=== PATIENT | female | born 1935 | race Caucasian/White ===

== ENCOUNTER 2016-12-18 11:15 | Emergency (ER) | payer OTHER ==
[~2016-12-18] VITALS: Ht 162.6 cm; Wt 80.1 kg
[~2016-12-18 11:15] MED LIST: ALPR-138 PO; AMLO5TAB22 PO; ASPI81TA82 PO; CARV3.125 PO; LEVO.05 PO; LISI-363 PO; ROSU40 PO
[2016-12-18 11:21] VITALS: BP 156/80; PULSE 75; RESP 16; TEMP 98.5; O2SAT 99
[2016-12-18] MEDS ORDERED: CARV3.12 PO (11:44)
[2016-12-18] MEDS ORDERED: AMLO5TAB2 PO (11:44)
[2016-12-18] MEDS ORDERED: ROSU40 PO (11:44)
[2016-12-18] MEDS ORDERED: VITA100064 PO (11:44)
[2016-12-18] MEDS ORDERED: LEVO88TA2 PO (11:44)
[2016-12-18] MEDS ORDERED: ASPI81TA11 PO (11:44)
[2016-12-18] MEDS ORDERED: LISI-515 PO (11:44)
[2016-12-18] MEDS ORDERED: SODIUM CHLORIDE 0.9% FLUSH 10 ML FLUSH IVF PRN (12:00)
[2016-12-18] MEDS ORDERED: ONDANSETRON HCL 4 MG/2 ML VIAL IVP ONE (12:00)
[2016-12-18] MEDS ORDERED: SODIUM CHLOR 0.9% 1000 ML INJ 1,000 ML IV ONE (12:00)
[2016-12-18 12:04] VITALS: O2SAT 97
--- NOTE | 2016-12-18 12:13 | PD ---
HPI Chief Complaint: General Weakness Time Seen by Provider: 11:47 Travel History International Travel<30 days: No Contact w/Intl Traveler<30days: No Traveled to known affect area: No History of Present Illness HPI Patient is an 81-year-old female who presents to emergency room from home for evaluation of general weakness. Patient reports that she was at home sitting on her bed talking to her doctor's office as she has had a cough and sore throat for the past week. Patient reports that after she got the phone, she felt "flushed". Patient reports that she felt weakness all over her body from her head to her toes, reports that "it felt as if everything was draining out of my body." Patient reports no syncopal or presyncopal episode. Reports that the symptoms lasted for a few minutes and resolved. Reports at this time, she just feels "weak" reports that everything started 30 minutes prior to coming to the emergency room. Patient at this time denies any headache or dizziness, denies chest pain or shortness of breath. She reports that she has had a nonproductive cough for the past week as well as a sore throat. Reports that her grandchild is sick with a sinusitis. Patient denies any abdominal pain, denies nausea or vomiting. Patient denies dysuria, urinary urgency or frequency. Patient with no other complaints at this time. PFSH Past Medical History Arthritis: Yes Asthma: No Autoimmune Disease: No Heart Rhythm Problems: No Cancer: Yes (SKIN CANCER -NOSE CHEST) Cardiovascular Problems: Yes High Cholesterol: Yes Chest Pain: No Congestive Heart Failure: No COPD: No Cerebrovascular Accident: Yes Diabetes: No Diminished Hearing: No Endocrine: Yes Gastrointestinal Disorders: Yes GERD: Yes Genitourinary: No Headaches: No Hiatal Hernia: Yes Hypertension: Yes Immune Disorder: No Musculoskeletal: Yes Neurologic: Yes Psychiatric: No Reproductive: No Respiratory: No Immunizations Current: No Migraines: No Myocardial Infarction: Yes Seizures: No Sleep Apnea: No Thyroid Disease: Yes Tetanus Vaccination: > 5 Years Influenza Vaccination: No Menopausal: Yes Tubal Ligation: Yes Past Surgical History Abdominal Surgery: Yes (APPENDECTOMY CHILDHOOD) Appendectomy: Yes Cardiac Surgery: No Coronary Stent: Yes Ear Surgery: No Endocrine Surgery: No Eye Surgery: No Genitourinary Surgery: Yes (COLONOSCOPY 2005) Gynecologic Surgery: Yes (TUBAL LIGATION) Joint Replacement: Yes (RIGHT KNEE) Neurologic Surgery: No Oral Surgery: Yes (TONSILLECTOMY-CHILDHOOD) Thoracic Surgery: No Tonsillectomy: Yes Other Surgery: Yes (VEIN STRIPPING RT LEG-1980 SKIN CANCER) Social History Alcohol Use: No Tobacco Use: No Substance Use: No Allergies-Medications (Allergen,Severity, Reaction): Coded Allergies: Benadryl (Verified Allergy, Severe, ANTIHISTAMINES, 12/18/16) Cipro (Verified Allergy, Severe, UNKNOWN, 12/18/16) Corticosteroids (Verified Allergy, Severe, UNKNOWN, 12/18/16) Penicillin (Verified Allergy, Severe, UNKNOWN, 12/18/16) Sulfa (Verified Allergy, Severe, UNKNOWN, 12/18/16) Acetaminophen (Unverified Adverse Reaction, Severe, VOMITING, 12/18/16) Reported Meds & Prescriptions Reported Meds & Active Scripts Active Azithromycin 500 Mg Tab 500 Mg PO DAILY Reported Crestor (Rosuvastatin Calcium) 40 Mg Tab 40 Mg PO DAILY Levothyroxine (Levothyroxine Sodium) 88 Mcg Tab 88 Mcg PO DAILY Amlodipine (Amlodipine Besylate) 5 Mg Tab 5 Mg PO DAILY Aspirin EC (Aspirin) 81 Mg Tabdr 81 Mg PO DAILY Carvedilol 3.125 Mg Tab 3.125 Mg PO BID Lisinopril 20 Mg Tab 20 Mg PO DAILY Vitamin D (Cholecalciferol) 1,000 Unit Tab 2,000 Units PO DAILY Review of Systems General / Constitutional: No: Fever, Chills Eyes: No: Visual changes HENT: Positive: Sore Throat, No: Headaches Cardiovascular: No: Chest Pain or Discomfort Respiratory: Positive: Cough, No: Shortness of Breath Gastrointestinal: No: Abdominal Pain Genitourinary: No: Dysuria Musculoskeletal: Positive: Weakness, No: Pain Skin: No Rash Neurologic: No: Weakness Psychiatric: No: Depression Endocrine: No: Polydipsia Hematologic/Lymphatic: No: Easy Bruising Physical Exam Narrative GENERAL: nad, nontoxic, vss SKIN: Focused skin assessment warm/dry. HEAD: Atraumatic. Normocephalic. EYES: Pupils equal and round. No scleral icterus. No injection or drainage. ENT: No nasal bleeding or discharge. Mucous membranes pink and moist. NECK: Trachea midline. No JVD. CARDIOVASCULAR: Regular rate and rhythm. No murmur appreciated. RESPIRATORY: No accessory muscle use. Clear to auscultation. Breath sounds equal bilaterally. GASTROINTESTINAL: Abdomen soft, non-tender, nondistended. Hepatic and splenic margins not palpable. MUSCULOSKELETAL: No obvious deformities. No clubbing. No cyanosis. No edema. NEUROLOGICAL: Awake and alert. No obvious cranial nerve deficits. Motor grossly within normal limits. Normal speech. CN 2-12 grossly intact with no neurological deficits PSYCHIATRIC: Appropriate mood and affect; insight and judgment normal. Data Data Last Documented VS Vital Signs Date Time Temp Pulse Resp B/P Pulse Ox O2 Delivery O2 Flow Rate FiO2 12/18/16 13:02 16 100 Room Air 12/18/16 13:01 78 169/77 12/18/16 11:21 98.5 Orders Electrocardiogram (12/18/16 11:59) Prothrombin Time / Inr (Pt) (12/18/16 11:59) Act Partial Throm Time (Ptt) (12/18/16 11:59) Complete Blood Count With Diff (12/18/16 11:59) Comprehensive Metabolic Panel (12/18/16 11:59) Creatine Kinase (Cpk) (12/18/16 11:59) Troponin I (12/18/16 11:59) Urinalysis - C+S If Indicated (12/18/16 11:59) Ct Brain W/O Iv Contrast(Rout) (12/18/16 11:59) Chest, Single Ap (12/18/16 11:59) Ecg Monitoring (12/18/16 11:59) Iv Access Insert/Monitor (12/18/16 11:59) Oximetry (12/18/16 11:59) Ondansetron Inj (Zofran Inj) (12/18/16 12:00) Sodium Chloride 0.9% Flush (Ns Flush) (12/18/16 12:00) Sodium Chlor 0.9% 1000 Ml Inj (Ns 1000 M (12/18/16 12:00) Group A Rapid Strep Screen (12/18/16 12:07) Influenzae A/B Antigen (12/18/16 12:27) Strep Culture (Group A) (12/18/16 12:15) Azithromycin (Zithromax) (12/18/16 14:15) Labs Laboratory Tests Test 12/18/16 12/18/16 12:15 12:30 White Blood Count 7.5 TH/MM3 Red Blood Count 4.47 MIL/MM3 Hemoglobin 12.7 GM/DL Hematocrit 37.3 % Mean Corpuscular Volume 83.3 FL Mean Corpuscular Hemoglobin 28.4 PG Mean Corpuscular Hemoglobin 34.1 % Concent Red Cell Distribution Width 13.5 % Platelet Count 319 TH/MM3 Mean Platelet Volume 7.8 FL Neutrophils (%) (Auto) 69.2 % Lymphocytes (%) (Auto) 20.3 % Monocytes (%) (Auto) 6.7 % Eosinophils (%) (Auto) 3.2 % Basophils (%) (Auto) 0.6 % Neutrophils # (Auto) 5.3 TH/MM3 Lymphocytes # (Auto) 1.5 TH/MM3 Monocytes # (Auto) 0.5 TH/MM3 Eosinophils # (Auto) 0.2 TH/MM3 Basophils # (Auto) 0.0 TH/MM3 CBC Comment DIFF FINAL Differential Comment Prothrombin Time 10.7 SEC Prothromb Time International 1.0 RATIO Ratio Activated Partial 33.2 SEC Thromboplast Time Sodium Level 138 MEQ/L Potassium Level 4.3 MEQ/L Chloride Level 102 MEQ/L Carbon Dioxide Level 28.9 MEQ/L Anion Gap 7 MEQ/L Blood Urea Nitrogen 14 MG/DL Creatinine 0.80 MG/DL Estimat Glomerular Filtration 69 ML/MIN Rate Random Glucose 124 MG/DL Calcium Level 8.8 MG/DL Total Bilirubin 0.4 MG/DL Aspartate Amino Transf 13 U/L (AST/SGOT) Alanine Aminotransferase 15 U/L (ALT/SGPT) Alkaline Phosphatase 111 U/L Total Creatine Kinase 29 U/L Troponin I LESS THAN 0.02 NG/ML Total Protein 7.2 GM/DL Albumin 3.5 GM/DL Urine Collection Type CATH Urine Color YELLOW Urine Turbidity CLEAR Urine pH 6.5 Urine Specific [place] 1.015 Urine Protein NEG mg/dL Urine Glucose (UA) NEG mg/dL Urine Ketones NEG mg/dL Urine Occult Blood SMALL Urine Nitrite NEG Urine Bilirubin NEG Urine Leukocyte Esterase NEG Urine RBC 0-3 /hpf Urine Squamous Epithelial 0-5 /hpf Cells Microscopic Urinalysis Comment CATH-CULT NOT IND Urine Collection Time 12:30 MDM Medical Decision Making Medical Screen Exam Complete: Yes Emergency Medical Condition: Yes Interpretation(s) EKG at 1202: NSR at 68bpm, qt/qtc: 404/418, no acute st or t wave changes Vital Signs Date Time Temp Pulse Resp B/P Pulse Ox O2 Delivery O2 Flow Rate FiO2 12/18/16 11:21 98.5 75 16 156/80 99 Differential Diagnosis Differential for generalized weakness includes: Arrhythmia, ACS, electrolyte abnormality, TIA, intracranial hemorrhage, CVA, dehydration, infection including uti and pneumonia Narrative Course Patient is an 81-year-old female who presents to emergency room with complaints of generalized weakness. Patient reports that symptoms began 30 minutes prior to arrival to ER. Reports that she feels a general flush all over her body as if "everything drained out of my body." Reports "I just don't feel good." Reports that she cannot localize why she isn't feeling well at this time. Vital Signs Date Time Temp Pulse Resp B/P Pulse Ox O2 Delivery O2 Flow Rate FiO2 12/18/16 11:21 98.5 75 16 156/80 99 Patient's vital signs are stable, patient with benign neuro exam. Patient was placed on a awake overnight monitor upon arrival to emergency room. EKG ordered. CT of the head ordered. Plan to him labs as well as check a UA for possible infection. X-ray chest ordered to evaluate for possible pneumonia. We'll give IV fluids and monitor patient. Laboratory Tests Test 12/18/16 12/18/16 12:15 12:30 White Blood Count 7.5 TH/MM3 (4.0-11.0) Red Blood Count 4.47 MIL/MM3 (4.00-5.30) Hemoglobin 12.7 GM/DL (11.6-15.3) Hematocrit 37.3 % (35.0-46.0) Mean Corpuscular Volume 83.3 FL (80.0-100.0) Mean Corpuscular Hemoglobin 28.4 PG (27.0-34.0) Mean Corpuscular Hemoglobin 34.1 % Concent (32.0-36.0) Red Cell Distribution Width 13.5 % (11.6-17.2) Platelet Count 319 TH/MM3 (150-450) Mean Platelet Volume 7.8 FL (7.0-11.0) Neutrophils (%) (Auto) 69.2 % (16.0-70.0) Lymphocytes (%) (Auto) 20.3 % (9.0-44.0) Monocytes (%) (Auto) 6.7 % (0.0-8.0) Eosinophils (%) (Auto) 3.2 % (0.0-4.0) Basophils (%) (Auto) 0.6 % (0.0-2.0) Neutrophils # (Auto) 5.3 TH/MM3 (1.8-7.7) Lymphocytes # (Auto) 1.5 TH/MM3 (1.0-4.8) Monocytes # (Auto) 0.5 TH/MM3 (0-0.9) Eosinophils # (Auto) 0.2 TH/MM3 (0-0.4) Basophils # (Auto) 0.0 TH/MM3 (0-0.2) CBC Comment DIFF FINAL Differential Comment Prothrombin Time 10.7 SEC (9.8-11.6) Prothromb Time International 1.0 RATIO Ratio Activated Partial 33.2 SEC Thromboplast Time (24.3-30.1) Sodium Level 138 MEQ/L (136-145) Potassium Level 4.3 MEQ/L (3.5-5.1) Chloride Level 102 MEQ/L (98-107) Carbon Dioxide Level 28.9 MEQ/L (21.0-32.0) Anion Gap 7 MEQ/L (5-15) Blood Urea Nitrogen 14 MG/DL (7-18) Creatinine 0.80 MG/DL (0.50-1.00) Estimat Glomerular Filtration 69 ML/MIN (>89) Rate Random Glucose 124 MG/DL (74-106) Calcium Level 8.8 MG/DL (8.5-10.1) Total Bilirubin 0.4 MG/DL (0.2-1.0) Aspartate Amino Transf 13 U/L (15-37) (AST/SGOT) Alanine Aminotransferase 15 U/L (10-53) (ALT/SGPT) Alkaline Phosphatase 111 U/L (45-117) Total Creatine Kinase 29 U/L (26-192) Troponin I LESS THAN 0.02 NG/ML (0.02-0.05) Total Protein 7.2 GM/DL (6.4-8.2) Albumin 3.5 GM/DL (3.4-5.0) Urine Collection Type CATH Urine Color YELLOW (YELLW/STRAW) Urine Turbidity CLEAR (CLEAR) Urine pH 6.5 (5.0-8.5) Urine Specific [place] 1.015 (1.002-1.035) Urine Protein NEG mg/dL (NEG-TRACE) Urine Glucose (UA) NEG mg/dL (NEG) Urine Ketones NEG mg/dL (NEG) Urine Occult Blood SMALL (NEG) Urine Nitrite NEG (NEG) Urine Bilirubin NEG (NEG) Urine Leukocyte Esterase NEG (NEG) Urine RBC 0-3 /hpf (0-3) Urine Squamous Epithelial 0-5 /hpf (0-5) Cells Microscopic Urinalysis Comment CATH-CULT NOT IND Urine Collection Time 12:30 Microbiology Date/Time Procedure Status Source Growth 12/18/16 12:15 Group A Streptococcus Screen ([facility]) - Final Complete Throat 12/18/16 12:15 Influenza Types A,B Antigen ([place]) - Final Complete Nasal Washing NEGATIVE FOR FLU A AND B ANTIGEN.... 12/18/16 12:15 Group A Streptococcus Screen Received Throat Pending Last Impressions Head CT 12/18/16 1159 Signed Impressions: Service Date/Time: November 12:31 - CONCLUSION: 1. Small area of increased density within the right cerebellar hemisphere consistent with probable focal calcification which may be related to old infarct or vascular malformation. 2. No acute infarct, acute hemorrhage, mass effect or extraaxial fluid collections. Polo Floyd MD Chest X-Ray 12/18/16 1159 Signed Impressions: Service Date/Time: November 12:48 - CONCLUSION: No acute disease. No significant change has occurred. Ej Woodson MD Patient reevaluated, patient reports that she is feeling much better at this time. I reviewed all labs and all studies including all findings with patient in detail. Patient reports that she is feeling much better and request to be discharged home. Patient will follow-up with her primary care doctor and will return to emergency room as needed. Diagnosis Primary Impression: Bronchitis Additional Impressions: Pharyngitis Weakness generalized Patient Instructions: General Instructions Additional Instructions: Please follow-up with your primary care doctor in 1-2 days Return to the emergency room as needed or if symptoms worsen or progress Med/Other Pt SpecificInfo: Prescription(s) given Scripts Benzonatate (Tessalon Perles)100 Mg [id number] Mg PO TID PRN (COUGH) #30 CAP Ref 0 Prov:Fabiola Stoll DO 12/18/16 Azithromycin 500 Mg [id number] Mg PO DAILY #5 TAB Ref 0 Prov:Fabiola Stoll DO 12/18/16 Disposition: 01 DISCHARGE HOME Condition: Stable Fabiola Stoll DO Dec 18, 2016 12:13
[2016-12-18 12:26] LABS: AUTOMATED NEUTROPHIL # 5.3 TH/MM3 (1.8-7.7); BASOPHIL % 0.6 % (0.0-2.0); EOSINOPHIL # 0.2 TH/MM3 (0-0.4); EOSINOPHIL % 3.2 % (0.0-4.0); HEMATOCRIT 37.3 % (35.0-46.0); HEMO FLAGS DIFF FINAL; LYMPH % 20.3 % (9.0-44.0); LYMPHOCYTE # 1.5 TH/MM3 (1.0-4.8); MEAN CELL VOLUME 83.3 FL (80.0-100.0); MEAN CORPUSCULAR HEMOGLOBIN 28.4 PG (27.0-34.0); MEAN CORPUSCULAR HGB CONC 34.1 % (32.0-36.0); MONO % 6.7 % (0.0-8.0); NEUT % 69.2 % (16.0-70.0); PLATELET COUNT 319 TH/MM3 (150-450); RED BLOOD COUNT 4.47 MIL/MM3 (4.00-5.30); RED CELL DISTRIBUTION WIDTH 13.5 % (11.6-17.2); WHITE BLOOD COUNT 7.5 TH/MM3 (4.0-11.0)
[2016-12-18 12:36] LABS: BLOOD, URINE SMALL (NEG); GLUCOSE,URINE NEG (NEG); KETONE, URINE NEG (NEG); NITRITE,URINE NEG (NEG); PH, URINE 6.5 (5.0-8.5)
[2016-12-18 12:38] LABS: CHLORIDE 102 MEQ/L (98-107); POTASSIUM 4.3 MEQ/L (3.5-5.1); SODIUM (NA) 138 MEQ/L (136-145)
[2016-12-18 12:42] LABS: ANION GAP 7 MEQ/L (5-15); APTT (PATIENT) 33.2 SEC (24.3-30.1); BICARBONATE 28.9 MEQ/L (21.0-32.0); BLOOD UREA NITROGEN 14 MG/DL (7-18); PROTHROMBIN TIME - PATIENT 10.7 SEC (9.8-11.6)
[2016-12-18 12:45] LABS: ALT (GPT) 15 U/L (10-53); AST (GOT) 13 U/L (15-37); GLOMERULAR FILTRATION RATE 69 ML/MIN (>89)
[2016-12-18 12:45] LABS: METHOD OF COLLECTION CATH; URINE COLOR YELLOW (YELLW/STRAW)
[2016-12-18 12:46] LABS: TOTAL BILIRUBIN ADULT 0.4 MG/DL (0.2-1.0)
[2016-12-18 12:46] LABS: COMMENT (UR) CATH-CULT NOT IND; CULTURE IF INDICATED CATH CULTURE NOT IND; RBC, URINE 0-3 /hpf (0-3); SQUAMOUS EPITHELIAL CELL URINE 0-5 /hpf (0-5)
[2016-12-18 12:48] LABS: ALKALINE PHOSPHATASE 111 U/L (45-117)
--- NOTE | 2016-12-18 12:57 | RADHPO ---
EXAM DATE/TIME: 12/18/2016 12:31 [facility] COMPARISON: No previous studies available for comparison. INDICATIONS : General weakness. RADIATION DOSE: 65.63 CTDIvol (mGy) MEDICAL HISTORY : Cerebrovascular disease. Myocardial infarction. Hypertension. SURGICAL HISTORY : Tubal ligation. Appendectomy. ENCOUNTER: Initial ACUITY: 2 days PAIN SCALE: 0/10 LOCATION: Cranial TECHNIQUE: Multiple contiguous axial images were obtained of the head. Using automated exposure control and adj ustment of the mA and/or kV according to patient size, radiation dose was kept as low as reasonably a chievable to obtain optimal diagnostic quality images. FINDINGS: There is a focal high density area within the right cerebellar hemisphere consistent with probable fo camacho calcification which may be related to old infarct or vascular malformation. The ventricles, sulci an d cisterns are normal in size, shape and position for the patient's age. There is no acute infarct, acute hemorrhag e, mass effect or extraaxial fluid collections. The bone windows are unremarkable. CONCLUSION: 1. Small area of increased density within the right cerebellar hemisphere consistent with probable f ocal calcification which may be related to old infarct or vascular malformation. 2. No acute infarct, acute hemorrhage, mass effect or extraaxial fluid collections. Polo Floyd MD on December 18, 2016 at 12:43 Board Certified Radiologist. This report was verified electronically.
--- NOTE | 2016-12-18 12:59 | RADHPO ---
EXAM DATE/TIME: 12/18/2016 12:48 [facility] COMPARISON: CHEST SINGLE AP, June 19, 2013, 18:23. INDICATIONS : Cough, weakness. MEDICAL HISTORY : Myocardial infarction. Hypercholesterolemia. Hypertension. CVA. Hiatial hernia. GERD. Arthritis. Skin cancer. Thyroid disease. SURGICAL HISTORY : Tonsillectomy. Total knee replacement, right. Tubal ligation. Cardiac stents. Appendectomy. ENCOUNTER: Initial ACUITY: 1 day PAIN SCORE: 0/10 LOCATION: chest FINDINGS: A single view of the chest demonstrates the lungs to be symmetrically aerated without evidence of mas s, infiltrate or effusion. There is some chronic interstitial changes bilaterally. The cardiomediast inal contours are unremarkable. Osseous structures are intact. CONCLUSION: No acute disease. No significant change has occurred. Ej Woodson MD on December 18, 2016 at 12:56 Board Certified Radiologist. This report was verified electronically.
[2016-12-18 13:01] VITALS: BP 169/77; PULSE 78; RESP 16; O2SAT 100
[2016-12-18 13:10] LABS: CREATINE KINASE 29 U/L (26-192)
[2016-12-18] MEDS ORDERED: AZIT500T2 PO (14:13)
[2016-12-18] MEDS ORDERED: AZITHROMYCIN 250 MG TAB PO ONE (14:15)
[2016-12-18] MEDS ORDERED: BENZ100 PO (14:26)
[2016-12-18 14:28] VITALS: BP 157/71; PULSE 65; RESP 14; O2SAT 98
--- NOTE | 2016-12-19 20:16 | EKG ---
Date Performed: 12/18/2016 Time Performed: 12:02:56 PTAGE: 81 years EKG: Sinus rhythm Old inferior infarct Compared to previous tracing, prior ischemic changes resolved Abnormal ECG PREVIOUS TRACING : 06/20/2013 05.20 DOCTOR: Ben Mayer Interpretating Date/Time 12/19/2016 20:15:19
== END 2016-12-18 14:43 | disposition home or self-care (01) ==
LOC: PHED 11:15
DX: J40 Bronchitis, not specified as acute or chronic (principal); J02.9 Acute pharyngitis, unspecified; R53.1 Weakness; R94.31 Abnormal electrocardiogram [ECG] [EKG]; E78.00 Pure hypercholesterolemia, unspecified; I10 Essential (primary) hypertension; I25.2 Old myocardial infarction; E07.9 Disorder of thyroid, unspecified; K21.9 Gastro-esophageal reflux disease without esophagitis; Z86.73 Personal history of transient ischemic attack (TIA), and cerebral infarction without residual deficits
CPT/HCPCS: 70450; 71010; 80053; 81001; 82550; 84484; 85025; 85610; 85730; 87081; 87804; 87880; 93005; 96361; 96374; 99285; J2405; J7030

== ENCOUNTER 2017-09-25 17:53 | Emergency (ER) | payer OTHER ==
[~2017-09-25 17:53] MED LIST changes: -ALPR-138 PO; +AMLO5TAB2 PO; -AMLO5TAB22 PO; +ASPI81TA23 PO; -ASPI81TA82 PO; +AZIT500T2 PO; +BENZ100 PO; +CARV3.12 PO; -CARV3.125 PO; -LEVO.05 PO; +LEVO88TA2 PO; -LISI-363 PO; +LISI-515 PO; +VITA100064 PO
[2017-09-25 17:55] VITALS: BP 194/100; PULSE 86; RESP 16; TEMP 97.6; O2SAT 99
--- NOTE | 2017-09-25 18:27 | PD ---
HPI Chief Complaint: Hypertension Time Seen by Provider: 18:13 Travel History International Travel<30 days: No Contact w/Intl Traveler<30days: No Traveled to known affect area: No History of Present Illness HPI 81-year-old female came to the emergency room with history of high blood pressure. Patient says she's been feeling bilateral temporal pressure and she feels like that she knows that her blood pressure is high. Upon arrival her blood pressure was in 190 systolic. Patient denies of any chest pain or blurred vision. No shortness of breath. Patient says that she was diagnosed with sinusitis and was started on steroid. She thinks the steroid did it to her. She is awake and answering questions appropriately. She has history of hypertension and is on medications. She says she took her medications this morning already. [facility] Past Medical History Narrative Medical List of her past medical, surgical, social and family history is reviewed from the nursing note. Hx Anticoagulant Therapy: Yes (ASA 81MG DAILY) Arthritis: Yes Asthma: No Autoimmune Disease: No Heart Rhythm Problems: No Cancer: Yes (SKIN CANCER -NOSE CHEST) Cardiovascular Problems: Yes High Cholesterol: Yes Chest Pain: No Congestive Heart Failure: No COPD: No Cerebrovascular Accident: Yes Diabetes: No Diminished Hearing: No Endocrine: Yes Gastrointestinal Disorders: Yes GERD: Yes Genitourinary: No Headaches: No Hiatal Hernia: Yes Hypertension: Yes Immune Disorder: No Musculoskeletal: Yes Neurologic: Yes Psychiatric: No Reproductive: No Respiratory: No Immunizations Current: No Migraines: No Myocardial Infarction: Yes Seizures: No Sleep Apnea: No Thyroid Disease: Yes ?: Not Menopausal: Yes Tubal Ligation: Yes Past Surgical History Abdominal Surgery: Yes (APPENDECTOMY CHILDHOOD) Appendectomy: Yes Cardiac Surgery: No Coronary Stent: Yes Ear Surgery: No Endocrine Surgery: No Eye Surgery: No Genitourinary Surgery: Yes (COLONOSCOPY 2006) Gynecologic Surgery: Yes (TUBAL LIGATION) Joint Replacement: Yes (RIGHT KNEE) Neurologic Surgery: No Oral Surgery: Yes (TONSILLECTOMY-CHILDHOOD) Thoracic Surgery: No Tonsillectomy: Yes Other Surgery: Yes (VEIN STRIPPING RT LEG-1980 SKIN CANCER) Social History Alcohol Use: No Tobacco Use: No Substance Use: No Allergies-Medications (Allergen,Severity, Reaction): Coded Allergies: Sulfa (Sulfonamide Antibiotics) (Unverified Allergy, Severe, UNKNOWN, 09/25) amcinonide (Unverified Allergy, Severe, UNKNOWN, 09/25/17) beclomethasone (Unverified Allergy, Severe, UNKNOWN, 09/25/17) betamethasone (Unverified Allergy, Severe, UNKNOWN, 09/25/17) ciprofloxacin (Unverified Allergy, Severe, UNKNOWN, 09/25/17) desoximetasone (Unverified Allergy, Severe, UNKNOWN, 09/25/17) dexamethasone (Unverified Allergy, Severe, UNKNOWN, 09/25/17) diphenhydramine (Unverified Allergy, Severe, ANTIHISTAMINES, 09/25/17) fludrocortisone (Unverified Allergy, Severe, UNKNOWN, 09/25/17) flunisolide (Unverified Allergy, Severe, UNKNOWN, 09/25/17) fluocinolone acetonide (Unverified Allergy, Severe, UNKNOWN, 09/25/17) fluocinonide (Unverified Allergy, Severe, UNKNOWN, 09/25/17) fluorometholone (Unverified Allergy, Severe, UNKNOWN, 09/25/17) flurandrenolide (Unverified Allergy, Severe, UNKNOWN, 09/25/17) fluticasone (Unverified Allergy, Severe, UNKNOWN, 09/25/17) fluticasone furoate (Unverified Allergy, Severe, UNKNOWN, 09/25/17) hydrocortisone (Unverified Allergy, Severe, UNKNOWN, 09/25/17) methylprednisolone (Unverified Allergy, Severe, UNKNOWN, 09/25/17) mometasone furoate (Unverified Allergy, Severe, UNKNOWN, 09/25/17) penicillin G (Unverified Allergy, Severe, UNKNOWN, 09/25/17) prednisolone (Unverified Allergy, Severe, UNKNOWN, 09/25/17) prednisone (Unverified Allergy, Severe, UNKNOWN, 09/25/17) triamcinolone (Unverified Allergy, Severe, UNKNOWN, 09/25/17) acetaminophen (Unverified Adverse Reaction, Severe, VOMITING, 09/25/17) Comments List of her extensive allergies reviewed from the nursing note. Reported Meds & Prescriptions Reported Meds & Active Scripts Active Reported Medrol Dosepak (Methylprednisolone) 4 Mg Dspk 4 Mg PO DIRECTED Per Pharmacist direction Levothyroxine (Levothyroxine Sodium) 88 Mcg Tab 88 Mcg PO DAILY Amlodipine (Amlodipine Besylate) 5 Mg Tab 5 Mg PO DAILY Carvedilol 3.125 Mg Tab 6.25 Mg PO BID Lisinopril 20 Mg Tab 20 Mg PO DAILY Narrative Medication List of her home medications reviewed from the nursing note. Review of Systems Except as stated in HPI: all other systems reviewed are Neg Neurologic: Positive: Headache Physical Exam Narrative GENERAL: Awake, alert, elderly, no obvious distress SKIN: Focused skin assessment warm/dry. HEAD: Atraumatic. Normocephalic. EYES: Pupils equal and round. No scleral icterus. No injection or drainage. ENT: No nasal bleeding or discharge. Mucous membranes pink and moist. NECK: Trachea midline. No JVD. CARDIOVASCULAR: Regular rate and rhythm. No murmur appreciated. RESPIRATORY: No accessory muscle use. Clear to auscultation. Breath sounds equal bilaterally. GASTROINTESTINAL: Abdomen soft, non-tender, nondistended. Hepatic and splenic margins not palpable. MUSCULOSKELETAL: No obvious deformities. No clubbing. No cyanosis. No edema. NEUROLOGICAL: Awake and alert. No obvious cranial nerve deficits. Motor grossly within normal limits. Normal speech. PSYCHIATRIC: Appropriate mood and affect; insight and judgment normal. Data Data Last Documented VS Vital Signs Date Time Temp Pulse Resp B/P (MAP) Pulse Ox O2 Delivery O2 Flow Rate FiO2 09/25/17 20:24 82 18 98 09/25/17 19:38 Room Air 09/25/17 17:55 97.6 Orders Orders Clonidine (Catapres) (09/25/17 18:45) Carvedilol (Coreg) (09/25/17 18:45) Ct Brain W/O Iv Contrast(Rout) (09/25/17 ) Complete Blood Count With Diff (09/25/17 18:33) Basic Metabolic Panel (Bmp) (09/25/17 18:33) Life Enrichment Manager / Telemetry [id number] (09/25/17 18:33) ^ Saline Lock (09/25/17 18:33) Acetaminophen (Tylenol) (09/25/17 20:15) Ed Discharge Order (09/25/17 20:01) Labs Laboratory Tests Test 09/25/17 18:46 White Blood Count 13.0 TH/MM3 Red Blood Count 4.95 MIL/MM3 Hemoglobin 13.9 GM/DL Hematocrit 42.6 % Mean Corpuscular Volume 86.0 FL Mean Corpuscular Hemoglobin 28.1 PG Mean Corpuscular Hemoglobin Concent 32.7 % Red Cell Distribution Width 13.5 % Platelet Count 401 TH/MM3 Mean Platelet Volume 7.5 FL Neutrophils (%) (Auto) 86.8 % Lymphocytes (%) (Auto) 10.5 % Monocytes (%) (Auto) 2.6 % Eosinophils (%) (Auto) 0.1 % Basophils (%) (Auto) 0.0 % Neutrophils # (Auto) 11.3 TH/MM3 Lymphocytes # (Auto) 1.4 TH/MM3 Monocytes # (Auto) 0.3 TH/MM3 Eosinophils # (Auto) 0.0 TH/MM3 Basophils # (Auto) 0.0 TH/MM3 CBC Comment DIFF FINAL Differential Comment Blood Urea Nitrogen 14 MG/DL Creatinine 0.77 MG/DL Random Glucose 124 MG/DL Calcium Level 8.8 MG/DL Sodium Level 129 MEQ/L Potassium Level 4.1 MEQ/L Chloride Level 96 MEQ/L Carbon Dioxide Level 23.5 MEQ/L Anion Gap 10 MEQ/L Estimat Glomerular Filtration Rate 72 ML/MIN MDM Medical Decision Making Medical Screen Exam Complete: Yes Emergency Medical Condition: Yes Medical Record Reviewed: Yes Differential Diagnosis Intracranial hemorrhage, sinusitis, essential hypertension Narrative Course 8:03 PM patient was given Tylenol for her headache. All her workup is negative. I'll discharge her home. Procedures EKG Prior to Arrival: No Diagnosis Primary Impression: Elevated blood pressure Referrals: Primary Care Physician Disposition: 01 DISCHARGE HOME Condition: Stable Yolie Goodwin MD Sep 25, 2017 18:27
[2017-09-25] MEDS ORDERED: MEDR4PAK PO (18:33)
[2017-09-25] MEDS ORDERED: CARVEDILOL 6.25 MG TAB PO ONE (18:45)
[2017-09-25] MEDS ORDERED: cloNIDine HCL 0.1 MG TAB PO ONE (18:45)
[2017-09-25 18:51] LABS: AUTOMATED NEUTROPHIL # 11.3 TH/MM3 (1.8-7.7); EOSINOPHIL % 0.1 % (0.0-4.0); HEMATOCRIT 42.6 % (35.0-46.0); HEMOGLOBIN 13.9 GM/DL (11.6-15.3); LYMPH % 10.5 % (9.0-44.0); LYMPHOCYTE # 1.4 TH/MM3 (1.0-4.8); MEAN CORPUSCULAR HEMOGLOBIN 28.1 PG (27.0-34.0); MEAN CORPUSCULAR HGB CONC 32.7 % (32.0-36.0); MEAN PLATELET VOLUME 7.5 FL (7.0-11.0); MONO % 2.6 % (0.0-8.0); MONOCYTE # 0.3 TH/MM3 (0-0.9); NEUT % 86.8 % (16.0-70.0); PLATELET COUNT 401 TH/MM3 (150-450); RED BLOOD COUNT 4.95 MIL/MM3 (4.00-5.30); RED CELL DISTRIBUTION WIDTH 13.5 % (11.6-17.2)
[2017-09-25 19:19] LABS: BICARBONATE 23.5 MEQ/L (21.0-32.0); CALCIUM 8.8 MG/DL (8.5-10.1)
[2017-09-25 19:23] LABS: CREATININE 0.77 MG/DL (0.50-1.00)
--- NOTE | 2017-09-25 19:23 | RADRPT ---
EXAM DATE/TIME: 09/25/2017 19:07 [facility] COMPARISON: CT BRAIN W/O CONTRAST, December 18, 2016, 12:31. INDICATIONS : High BP, cephalgia RADIATION DOSE: 58.17 CTDIvol (mGy) MEDICAL HISTORY : Hypertension. Cerebrovascular disease. CVA SURGICAL HISTORY : Tonsillectomy. ENCOUNTER: Initial ACUITY: 1 day PAIN SCALE: 3/10 LOCATION: cranial TECHNIQUE: Multiple contiguous axial images were obtained of the head. Using automated exposure control and adj ustment of the mA and/or kV according to patient size, radiation dose was kept as low as reasonably a chievable to obtain optimal diagnostic quality images. DICOM format image data is available electro nically for review and comparison. FINDINGS: No acute intracranial mass, hemorrhage or shift. No hydrocephalus. Stable calcification in the right cerebellum since November 2016. No acute bony abnormalities. Sinuses clear. CONCLUSION: 1. No acute intracranial abnormalities. Waldemar Titus MD on September 25, 2017 at 19:18 Board Certified Radiologist. This report was verified electronically.
[2017-09-25 19:38] VITALS: BP 172/87; PULSE 75; RESP 18; O2SAT 99
[2017-09-25] MEDS ORDERED: ACETAMINOPHEN 325 MG TAB PO ONE (20:15)
== END 2017-09-25 20:25 | disposition home or self-care (01) ==
LOC: PHED 17:53
DX: I10 Essential (primary) hypertension (principal); E78.00 Pure hypercholesterolemia, unspecified; I67.9 Cerebrovascular disease, unspecified; I25.2 Old myocardial infarction; K21.9 Gastro-esophageal reflux disease without esophagitis; M19.90 Unspecified osteoarthritis, unspecified site; Z86.73 Personal history of transient ischemic attack (TIA), and cerebral infarction without residual deficits; Z85.828 Personal history of other malignant neoplasm of skin; Z95.5 Presence of coronary angioplasty implant and graft; Z88.2 Allergy status to sulfonamides; Z88.8 Allergy status to other drugs, medicaments and biological substances; Z88.0 Allergy status to penicillin; Z79.899 Other long term (current) drug therapy
CPT/HCPCS: 70450; 80048; 85025

== ENCOUNTER 2017-09-27 09:22 | Emergency (ER) | payer OTHER ==
[~2017-09-27] VITALS: Ht 162.6 cm; Wt 79.0 kg
[~2017-09-27 09:22] MED LIST changes: +MEDR4PAK PO
[2017-09-27 09:26] VITALS: BP 130/62; PULSE 85; RESP 16; TEMP 97.9; O2SAT 98
--- NOTE | 2017-09-27 10:32 | PD ---
HPI Chief Complaint: Musculoskeletal Complaint Time Seen by Provider: 10:00 Travel History International Travel<30 days: No Contact w/Intl Traveler<30days: No Traveled to known affect area: No History of Present Illness HPI 81-year-old female presents to emergency department complaining of left breast sprain that increases with cough and breathing that radiates back since yesterday. States that she would does not know what she was doing at the time of the onset but states that the pain is only present with coughing and deep breathing. Patient states that she was here Thursday for an episode of high blood pressure she believes secondary to her prednisone. Patient denies history of DVT, PE, recent travel. States that she did have an KS 3 years ago and stents were placed. She takes 81 mg aspirin daily. She is due for her next appointment with cardiology in October. She does not know when her last stress test or echocardiogram was. Patient denies fever, chills, shortness of breath, abdominal pain. Her last bowel movement was today. States in addition , she is being treated for bronchitis or approximately 3 weeks along with a sinus infection. She has been followed by her primary care physician and ear nose and throat who initially placed her on the steroids. PFSH Past Medical History Hx Anticoagulant Therapy: Yes (ASA 81MG DAILY) Arthritis: Yes Asthma: No Autoimmune Disease: No Heart Rhythm Problems: No Cancer: Yes (SKIN CANCER -NOSE CHEST) Cardiovascular Problems: Yes High Cholesterol: Yes Chest Pain: No Congestive Heart Failure: No COPD: No Cerebrovascular Accident: Yes Diabetes: No Diminished Hearing: No Endocrine: Yes Gastrointestinal Disorders: No GERD: Yes Genitourinary: No Headaches: No Hiatal Hernia: Yes Hypertension: Yes Immune Disorder: No Implanted Vascular Access Dvce: No Musculoskeletal: Yes Neurologic: Yes Psychiatric: No Reproductive: No Respiratory: No Immunizations Current: No Migraines: No Myocardial Infarction: Yes Seizures: No Sleep Apnea: No Thyroid Disease: Yes Menopausal: Yes Tubal Ligation: Yes Past Surgical History Abdominal Surgery: Yes (APPENDECTOMY CHILDHOOD) Appendectomy: Yes Cardiac Surgery: No Coronary Stent: Yes Ear Surgery: No Endocrine Surgery: No Eye Surgery: No Genitourinary Surgery: Yes (COLONOSCOPY 2005) Gynecologic Surgery: Yes (TUBAL LIGATION) Joint Replacement: Yes (RIGHT KNEE) Neurologic Surgery: No Oral Surgery: Yes (TONSILLECTOMY-CHILDHOOD) Thoracic Surgery: No Tonsillectomy: Yes Other Surgery: Yes (VEIN STRIPPING RT LEG-1980 SKIN CANCER) Social History Alcohol Use: No Tobacco Use: No Substance Use: No Allergies-Medications (Allergen,Severity, Reaction): Coded Allergies: Sulfa (Sulfonamide Antibiotics) (Unverified Allergy, Severe, UNKNOWN, 09/27) amcinonide (Unverified Allergy, Severe, UNKNOWN, 09/27/17) beclomethasone (Unverified Allergy, Severe, UNKNOWN, 09/27/17) betamethasone (Unverified Allergy, Severe, UNKNOWN, 09/27/17) ciprofloxacin (Unverified Allergy, Severe, UNKNOWN, 09/27/17) desoximetasone (Unverified Allergy, Severe, UNKNOWN, 09/27/17) dexamethasone (Unverified Allergy, Severe, UNKNOWN, 09/27/17) diphenhydramine (Unverified Allergy, Severe, ANTIHISTAMINES, 09/27/17) fludrocortisone (Unverified Allergy, Severe, UNKNOWN, 09/27/17) flunisolide (Unverified Allergy, Severe, UNKNOWN, 09/27/17) fluocinolone acetonide (Unverified Allergy, Severe, UNKNOWN, 09/27/17) fluocinonide (Unverified Allergy, Severe, UNKNOWN, 09/27/17) fluorometholone (Unverified Allergy, Severe, UNKNOWN, 09/27/17) flurandrenolide (Unverified Allergy, Severe, UNKNOWN, 09/27/17) fluticasone (Unverified Allergy, Severe, UNKNOWN, 09/27/17) fluticasone furoate (Unverified Allergy, Severe, UNKNOWN, 09/27/17) hydrocortisone (Unverified Allergy, Severe, UNKNOWN, 09/27/17) methylprednisolone (Unverified Allergy, Severe, UNKNOWN, 09/27/17) mometasone furoate (Unverified Allergy, Severe, UNKNOWN, 09/27/17) penicillin G (Unverified Allergy, Severe, UNKNOWN, 09/27/17) prednisolone (Unverified Allergy, Severe, UNKNOWN, 09/27/17) prednisone (Unverified Allergy, Severe, UNKNOWN, 09/27/17) triamcinolone (Unverified Allergy, Severe, UNKNOWN, 09/27/17) acetaminophen (Unverified Adverse Reaction, Severe, VOMITING, 09/27/17) Reported Meds & Prescriptions Reported Meds & Active Scripts Active Reported Medrol Dosepak (Methylprednisolone) 4 Mg Dspk 4 Mg PO DIRECTED Per Pharmacist direction Levothyroxine (Levothyroxine Sodium) 88 Mcg Tab 88 Mcg PO DAILY Amlodipine (Amlodipine Besylate) 5 Mg Tab 5 Mg PO DAILY Carvedilol 3.125 Mg Tab 6.25 Mg PO BID Lisinopril 20 Mg Tab 20 Mg PO DAILY Review of Systems Except as stated in HPI: all other systems reviewed are Neg Physical Exam Narrative GENERAL: Well-developed well-nourished in no apparent distress, sitting comfortably in bed SKIN: Focused skin assessment warm/dry. No rashes or lesions to the chest wall , no redness HEAD: Atraumatic. Normocephalic. EYES: Pupils equal and round. No scleral icterus. No injection or drainage. EOMI ENT: No nasal bleeding or discharge. Mucous membranes pink and moist. Pharynx noninjected NECK: Trachea midline. No JVD. No midline tenderness CARDIOVASCULAR: Regular rate and rhythm. No murmur appreciated. RESPIRATORY: No accessory muscle use. Clear to auscultation. Breath sounds equal bilaterally. GASTROINTESTINAL: Abdomen soft, non-tender, nondistended. MUSCULOSKELETAL: No obvious deformities. No clubbing. No cyanosis. No edema. Mild tenderness to palpation to the left axillary chest wall NEUROLOGICAL: Awake and alert. No obvious cranial nerve deficits. Motor grossly within normal limits. Normal speech. PSYCHIATRIC: Appropriate mood and affect; insight and judgment normal. Data Data Last Documented VS Vital Signs Date Time Temp Pulse Resp B/P (MAP) Pulse Ox O2 Delivery O2 Flow Rate FiO2 09/27/17 12:03 70 20 117/56 (76) 94 09/27/17 09:26 97.9 Orders Orders Electrocardiogram (09/27/17 10:26) Complete Blood Count With Diff (09/27/17 10:26) Comprehensive Metabolic Panel (09/27/17 10:26) Prothrombin Time / Inr (Pt) (09/27/17 10:26) Act Partial Throm Time (Ptt) (09/27/17 10:26) Troponin I (09/27/17 10:26) Chest, Single Ap (09/27/17 10:26) Ed Discharge Order (09/27/17 11:53) Labs Laboratory Tests Test 09/27/17 10:40 White Blood Count 8.6 TH/MM3 Red Blood Count 4.66 MIL/MM3 Hemoglobin 13.1 GM/DL Hematocrit 39.7 % Mean Corpuscular Volume 85.1 FL Mean Corpuscular Hemoglobin 28.2 PG Mean Corpuscular Hemoglobin Concent 33.2 % Red Cell Distribution Width 12.9 % Platelet Count 416 TH/MM3 Mean Platelet Volume 7.7 FL Neutrophils (%) (Auto) 73.2 % Lymphocytes (%) (Auto) 16.8 % Monocytes (%) (Auto) 8.5 % Eosinophils (%) (Auto) 1.1 % Basophils (%) (Auto) 0.4 % Neutrophils # (Auto) 6.4 TH/MM3 Lymphocytes # (Auto) 1.4 TH/MM3 Monocytes # (Auto) 0.7 TH/MM3 Eosinophils # (Auto) 0.1 TH/MM3 Basophils # (Auto) 0.0 TH/MM3 CBC Comment DIFF FINAL Differential Comment Prothrombin Time 10.6 SEC Prothromb Time International Ratio 1.0 RATIO Activated Partial Thromboplast Time 30.1 SEC Blood Urea Nitrogen 23 MG/DL Creatinine 0.90 MG/DL Random Glucose 119 MG/DL Total Protein 7.4 GM/DL Albumin 3.5 GM/DL Calcium Level 8.8 MG/DL Alkaline Phosphatase 112 U/L Aspartate Amino Transf (AST/SGOT) 13 U/L Alanine Aminotransferase (ALT/SGPT) 18 U/L Total Bilirubin 0.4 MG/DL Sodium Level 132 MEQ/L Potassium Level 4.0 MEQ/L Chloride Level 96 MEQ/L Carbon Dioxide Level 27.3 MEQ/L Anion Gap 9 MEQ/L Estimat Glomerular Filtration Rate 60 ML/MIN Troponin I LESS THAN 0.02 NG/ML MDM Medical Decision Making Medical Screen Exam Complete: Yes Emergency Medical Condition: Yes Differential Diagnosis Costochondritis, and STEMI, bronchitis Narrative Course 81-year-old female presents to emergency department complaining of left breast sprain that increases with cough and breathing that radiates back since yesterday. States that she would does not know what she was doing at the time of the onset but states that the pain is only present with coughing and deep breathing. Sates her pain is mild. Denies nausea, vomiting, diarrhea. Patient states that she was here Thursday for an episode of high blood pressure she believes secondary to her prednisone. Patient denies history of DVT, PE, recent travel. States that she did have an KS 3 years ago and stents were placed. She takes 81 mg aspirin daily. She is due for her next appointment with cardiology in October. She does not know when her last stress test or echocardiogram was. Patient denies fever, chills, shortness of breath, abdominal pain. Her last bowel movement was today. States in addition, she is being treated for bronchitis or approximately 3 weeks along with a sinus infection. She has been followed by her primary care physician and ear nose and throat who initially placed her on the steroids. Vital signs stable. EKG demonstrates sinus rhythm without ST elevations or depressions, heart rate 69. This EKG appears similar to EKG performed in November 2016. Cardiac catheter was performed in 2012, EF 55%. Physical exam findings are unremarkable except for mild tenderness palpation of the axillary chest wall. Cardiac enzymes negative. Patient states that she has had a three-week history of bronchitis and is followed her primary care physician and web search evaluator. She was here on Thursday for elevated blood pressure, possibly secondary to steroid use for sinusitis, per patient. Because of patient's history of bronchitis, positional pain, stable labs and vital signs, patient will be discharged and advised to take Tylenol for her pain. Advises that her pain did increase to return to the emergency Department immediately. 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 Elevate the joint above the heart to reduce swelling. You may use compression with Shaka wrap or similar to reduce swelling. If symptoms persist or worsen, return to the emergency department. Follow up with your primary care physician within 2 days. Disposition: 01 DISCHARGE HOME Condition: Stable Flori Mccurdy Sep 27, 2017 10:32
[2017-09-27 10:41] VITALS: BP 124/76; PULSE 76; RESP 20; O2SAT 96
[2017-09-27 11:02] LABS: AUTOMATED NEUTROPHIL # 6.4 TH/MM3 (1.8-7.7); BASOPHIL % 0.4 % (0.0-2.0); EOSINOPHIL # 0.1 TH/MM3 (0-0.4); EOSINOPHIL % 1.1 % (0.0-4.0); HEMATOCRIT 39.7 % (35.0-46.0); HEMOGLOBIN 13.1 GM/DL (11.6-15.3); LYMPH % 16.8 % (9.0-44.0); LYMPHOCYTE # 1.4 TH/MM3 (1.0-4.8); MEAN CELL VOLUME 85.1 FL (80.0-100.0); MEAN CORPUSCULAR HEMOGLOBIN 28.2 PG (27.0-34.0); MEAN CORPUSCULAR HGB CONC 33.2 % (32.0-36.0); MEAN PLATELET VOLUME 7.7 FL (7.0-11.0); MONO % 8.5 % (0.0-8.0); MONOCYTE # 0.7 TH/MM3 (0-0.9); NEUT % 73.2 % (16.0-70.0); PLATELET COUNT 416 TH/MM3 (150-450); RED BLOOD COUNT 4.66 MIL/MM3 (4.00-5.30); RED CELL DISTRIBUTION WIDTH 12.9 % (11.6-17.2); WHITE BLOOD COUNT 8.6 TH/MM3 (4.0-11.0)
[2017-09-27 11:12] LABS: CHLORIDE 96 MEQ/L (98-107); SODIUM (NA) 132 MEQ/L (136-145)
[2017-09-27 11:15] LABS: ALBUMIN 3.5 GM/DL (3.4-5.0); BICARBONATE 27.3 MEQ/L (21.0-32.0); CALCIUM 8.8 MG/DL (8.5-10.1); GLUCOSE,RANDOM 119 MG/DL (74-106)
[2017-09-27 11:16] LABS: BLOOD UREA NITROGEN 23 MG/DL (7-18); PROTHROMBIN TIME - PATIENT 10.6 SEC (9.8-11.6)
[2017-09-27 11:18] LABS: ALT (GPT) 18 U/L (10-53); AST (GOT) 13 U/L (15-37)
[2017-09-27 11:19] LABS: GLOMERULAR FILTRATION RATE 60 ML/MIN (>89)
[2017-09-27 11:20] LABS: TOTAL BILIRUBIN ADULT 0.4 MG/DL (0.2-1.0); TOTAL PROTEIN 7.4 GM/DL (6.4-8.2)
[2017-09-27 11:21] LABS: ALKALINE PHOSPHATASE 112 U/L (45-117)
[2017-09-27 11:23] LABS: TROPONIN I LESS THAN 0.02 NG/ML (0.02-0.05)
--- NOTE | 2017-09-27 11:25 | RADRPT ---
EXAM DATE/TIME: 09/27/2017 10:48 [facility] COMPARISON: CHEST SINGLE AP, December 18, 2016, 12:48. INDICATIONS : Left side upper chest pain MEDICAL HISTORY : Myocardial infarction. SURGICAL HISTORY : Cardiac stents ENCOUNTER: Initial ACUITY: 1 day PAIN SCORE: 7/10 LOCATION: Left upper chest FINDINGS: A single view of the chest demonstrates the lungs to be symmetrically aerated without evidence of mas s, infiltrate or effusion. The cardiomediastinal contours are unremarkable. Osseous structures are intact. CONCLUSION: No acute disease. Rylee Bella MD on September 27, 2017 at 11:22 Board Certified Radiologist. This report was verified electronically.
[2017-09-27 12:03] VITALS: BP 117/56
--- NOTE | 2017-09-28 18:13 | EKG ---
Date Performed: 09/27/2017 Time Performed: 10:47:36 PTAGE: 81 years EKG: Sinus rhythm INFERIOR MYOCARDIAL INFARCTION-age undeterminate. ABNORMAL ECG PREVIOUS TRACING : 12/18/2016 12.02 DOCTOR: Greyson Whitlock Interpretating Date/Time 09/28/2017 18:11:24
== END 2017-09-27 12:13 | disposition home or self-care (01) ==
LOC: PHED 09:22
DX: R07.89 Other chest pain (principal); I25.2 Old myocardial infarction; R94.31 Abnormal electrocardiogram [ECG] [EKG]; M19.90 Unspecified osteoarthritis, unspecified site; E78.00 Pure hypercholesterolemia, unspecified; K21.9 Gastro-esophageal reflux disease without esophagitis; I10 Essential (primary) hypertension; E07.9 Disorder of thyroid, unspecified; Z86.73 Personal history of transient ischemic attack (TIA), and cerebral infarction without residual deficits
CPT/HCPCS: 71045; 80053; 84484; 85025; 85610; 85730; 93005

== ENCOUNTER 2018-05-07 15:46 | Observation (INO) ==
--- NOTE | 2018-05-07 16:25 | ED ---
HPI General Chief Complaint: Chest Pain Stated Complaint: Chest Pain/pressure History of Present Illness HPI narrative: The patient was seen and examined in the presence of the nurse. This patient complains of chest heaviness and pressure. Is located in the center sternum. Duration is 5 hours. Severity is moderate. She took some antacids but did not help. She has both history of cardiac stenting in GI problems such as GERD and had esophageal stretching 5 months ago. No alleviating factors. No exacerbating factors. Complete Quality Measures for STEMI Alert Patients Related Data Home Medications Medication Instructions Recorded Confirmed amlodipine 5 mg PO DAILY 05/07/18 05/07/18 aspirin 81 mg PO DAILY 05/07/18 05/07/18 carvedilol 3.125 mg PO BID 05/07/18 05/07/18 levothyroxine 88 mcg PO DAILY 05/07/18 05/07/18 lisinopril 20 mg PO DAILY 05/07/18 05/07/18 Allergies Allergy/AdvReac Type Severity Reaction Status Date / Time amcinonide Allergy Severe UNKNOWN Unverified 09/27/17 09:27 beclomethasone Allergy Severe UNKNOWN Unverified 09/27/17 09:27 betamethasone Allergy Severe UNKNOWN Unverified 09/27/17 09:27 ciprofloxacin Allergy Severe UNKNOWN Unverified 09/27/17 09:27 desoximetasone Allergy Severe UNKNOWN Unverified 09/27/17 09:27 dexamethasone Allergy Severe UNKNOWN Unverified 09/27/17 09:27 diphenhydramine Allergy Severe ANTIHISTAMI Unverified 09/27/17 09:27 JOSE fludrocortisone Allergy Severe UNKNOWN Unverified 09/27/17 09:27 flunisolide Allergy Severe UNKNOWN Unverified 09/27/17 09:27 fluocinolone acetonide Allergy Severe UNKNOWN Unverified 09/27/17 09:27 fluocinonide Allergy Severe UNKNOWN Unverified 09/27/17 09:27 fluorometholone Allergy Severe UNKNOWN Unverified 09/27/17 09:27 flurandrenolide Allergy Severe UNKNOWN Unverified 09/27/17 09:27 fluticasone Allergy Severe UNKNOWN Unverified 09/27/17 09:27 fluticasone furoate Allergy Severe UNKNOWN Unverified 09/27/17 09:27 hydrocortisone Allergy Severe UNKNOWN Unverified 01/28/18 09:27 methylprednisolone Allergy Severe UNKNOWN Unverified 09/27/17 09:27 mometasone furoate Allergy Severe UNKNOWN Unverified 09/27/17 09:27 penicillin G Allergy Severe UNKNOWN Unverified 09/27/17 09:27 prednisolone Allergy Severe UNKNOWN Unverified 09/27/17 09:27 prednisone Allergy Severe UNKNOWN Unverified 09/27/17 09:27 Sulfa (Sulfonamide Allergy Severe UNKNOWN Unverified 09/27/17 09:27 Antibiotics) triamcinolone Allergy Severe UNKNOWN Unverified 09/27/17 09:27 acetaminophen AdvReac Severe VOMITING Unverified 09/27/17 09:27 Review of Systems ROS: all other systems reviewed are negative PMFSH Social History Social History Substance History: No History of Abuse Second Hand Smoke Exposure: No Smoking Status: Never smoker How Often Do You Have a Drink Containing Alcohol: Never Recent Travel in [facility] within the Last 8 Weeks: No Recent Out of Country Travel within the Last 8 Weeks: No Exam Narrative Exam Narrative: GENERAL: Well-nourished, well-developed patient in no apparent distress. SKIN: Focused skin assessment reveals no rash and nodules. Skin is Warm and dry. HEAD: Atraumatic. Normocephalic. EYES: Pupils equal and round. No scleral icterus. No injection or drainage. ENT: No nasal bleeding or discharge. Mucous membranes pink and moist. NECK: Trachea midline. No JVD. CARDIOVASCULAR: Regular rate and rhythm. No murmur appreciated. RESPIRATORY: No accessory muscle use. Clear to auscultation. Breath sounds equal bilaterally. GASTROINTESTINAL: Abdomen soft, non-tender, nondistended. Hepatic and splenic margins not palpable. MUSCULOSKELETAL: No obvious deformities. No clubbing. No cyanosis. No edema. NEUROLOGICAL: Awake and alert. No obvious cranial nerve deficits. Motor grossly within normal limits. Normal speech. PSYCHIATRIC: Appropriate mood and affect; insight and judgment normal. Course Initial Documented Vital Signs Temperature 98.1 F 05/07/18 15:55 Pulse Rate 71 05/07/18 15:55 Respiratory Rate 18 05/07/18 15:55 Blood Pressure 196/81 H 05/07/18 15:55 Pulse Oximetry 98 05/07/18 15:55 Last Documented Vital Signs Temperature 98.1 F 05/07/18 15:55 Pulse Rate 71 05/07/18 16:25 Respiratory Rate 16 05/07/18 16:25 Blood Pressure 167/77 H 05/07/18 16:25 Pulse Oximetry 96 05/07/18 16:25 Medical Decision Making MDM Narrative Medical decision making narrative: IV placed and labs sent. She took an aspirin prior to arrival I reviewed her EKG which shows sinus rhythm but no ST elevation I reviewed her chest x-ray which is normal Labs are normal including cardiac enzymes. I reviewed with the hospitalist. She will be a 23 hour observation on telemetry to rule out cardiac cause of her chest discomfort. Medical Screen Exam Complete: Yes Emergency Medical Condition: Yes Differential Diagnosis Differential Diagnosis: Differential diagnosis includes VA, angina, pericarditis , pleurisy, GERD, anxiety. Medical Records Medical records reviewed: Yes I reviewed the patient's medical records. Lab Data Lab results reviewed: Yes I reviewed the patient's lab results. Result diagrams: 05/07/18 16:20 05/07/18 16:20 Lab Results 05/07/18 05/07/18 05/07/18 Range/Units 16:20 16:20 16:20 CBC w Diff Auto diff final WBC 7.2 (4.0-11.0) th/mm3 RBC 4.43 (4.00-5.30) mil/mm3 Hgb 13.1 (11.6-15.3) gm/dL Hct 38.0 (35.0-46.0) % MCV 85.9 (80.0-100.0) fL MCH 29.5 (27.0-34.0) pg MCHC 34.3 (32.0-36.0) % RDW 12.9 (11.6-17.2) % Plt Count 331 (150-450) th/mm3 MPV 8.1 (7.0-11.0) fL Neut % (Auto) 62.3 (16.0-70.0) % Lymph % (Auto) 26.5 (9.0-44.0) % [place] % (Auto) 6.8 (0.0-8.0) % Eos % (Auto) 3.5 (0.0-4.0) % Baso % (Auto) 0.9 (0.0-2.0) % Neut # (Auto) 4.4 (1.8-7.7) th/mm3 Lymph # (Auto) 1.9 (1.0-4.8) th/mm3 [place] # (Auto) 0.5 (0.0-0.9) th/mm3 Eos # (Auto) 0.3 (0.0-0.4) th/mm3 Baso # (Auto) 0.1 (0.0-0.2) th/mm3 WBC Differential . Differential Comment . Sodium 133 L (136-145) meq/L Potassium 4.2 (3.5-5.1) meq/L Chloride 98 (98-107) meq/L Carbon Dioxide 26.3 (21.0-32.0) meq/L Anion Gap 9 (5-15) meq/L BUN 13 (7-18) mg/dL Creatinine 0.85 (0.50-1.00) mg/dL Estimated GFR 64 L (>89) mL/min Random Glucose 93 (74-106) mg/dL Calcium 9.1 (8.5-10.1) mg/dL Total Bilirubin 0.3 (0.2-1.0) mg/dL AST 15 (15-37) U/L ALT 18 (10-53) U/L Alkaline Phosphatase 97 (45-117) U/L Total Creatine Kinase 32 (26-192) U/L Troponin I Less than 0.02 L (0.02-0.05) ng/mL Total Protein 7.4 (6.4-8.2) g/dL Albumin 3.7 (3.4-5.0) g/dL Imaging Data Radiologist's impression: Chest X-Ray 05/07/18 16:12 CONCLUSION: Negative examination. Discharge Plan Discharge Disposition Patient Disposition: 30 Still Patient Discharge Details Diagnosis: Chest pain in adult Physicians Team ED Provider: Gregory Grossman Primary Care Provider: Addie Alicia Rxs /Orders / Referrals /Forms Prescriptions: No Action lisinopril 20 mg Tablet 20 mg PO DAILY RF: 0 amlodipine 5 mg Tablet 5 mg PO DAILY RF: 0 aspirin 81 mg Tablet,Delayed Release (Dr/Ec) 81 mg PO DAILY RF: 0 carvedilol 3.125 mg Tablet 3.125 mg PO BID RF: 0 levothyroxine 88 mcg Capsule 88 mcg PO DAILY RF: 0 Discharge Instructions Patient Printed Instructions: Chest Pain (ED) Discharge Interventions Interventions: Vital Signs Last Done: 05/07/18 16:25 Status ED Status: In Room
[2018-05-07 16:29] LABS: Baso # (Auto) 0.1 th/mm3 (0.0-0.2); Baso % (Auto) 0.9 % (0.0-2.0); Eos # (Auto) 0.3 th/mm3 (0.0-0.4); Eos % (Auto) 3.5 % (0.0-4.0); Hemoglobin 13.1 gm/dL (11.6-15.3); Lymph # (Auto) 1.9 th/mm3 (1.0-4.8); Lymph % (Auto) 26.5 % (9.0-44.0); Mean Corpuscular HGB Conc 34.3 % (32.0-36.0); Mean Corpuscular Hemoglobin 29.5 pg (27.0-34.0); Mean Corpuscular Volume 85.9 fL (80.0-100.0); Mean Platelet Volume 8.1 fL (7.0-11.0); Mono # (Auto) 0.5 th/mm3 (0.0-0.9); Mono % (Auto) 6.8 % (0.0-8.0); Neut # (Auto) 4.4 th/mm3 (1.8-7.7); Neut % (Auto) 62.3 % (16.0-70.0); Platelet Count 331 th/mm3 (150-450); Red Blood Count 4.43 mil/mm3 (4.00-5.30); Red Cell Distribution Width 12.9 % (11.6-17.2); White Blood Count 7.2 th/mm3 (4.0-11.0)
--- NOTE | 2018-05-07 16:36 | XR ---
EXAM DATE: 05/07/2018 4:30 PM EDT AGE/SEX: 82 years / Female INDICATIONS: Chest pain starting today CLINICAL DATA: This is the patient's initial encounter. Patient reports that signs and symptoms have been present for 1 day and indicates a pain score of 8/10. MEDICAL/SURGICAL HISTORY: Myocardial infarction. . Cardiac stents COMPARISON: No prior exams available for comparison. FINDINGS: A single AP view of the chest demonstrates the lungs to be symmetrically aerated without evidence of mass, infiltrate or effusion. The cardiomediastinal contours are unremarkable. Osseous structures a re intact. CONCLUSION: Negative examination. Electronically signed by: Rylee Bella MD 05/07/2018 4:34 PM EDT
[2018-05-07 16:37] LABS: Chloride 98 meq/L (98-107); Potassium 4.2 meq/L (3.5-5.1); Sodium 133 meq/L (136-145)
[2018-05-07 16:40] LABS: Calcium 9.1 mg/dL (8.5-10.1)
[2018-05-07 16:41] LABS: Albumin 3.7 g/dL (3.4-5.0); Anion Gap 9 meq/L (5-15); Blood Urea Nitrogen 13 mg/dL (7-18); Carbon Dioxide 26.3 meq/L (21.0-32.0); Glucose,Random 93 mg/dL (74-106)
[2018-05-07 16:44] LABS: Alanine Aminotransferase 18 U/L (10-53); Aspartate Aminotransferase 15 U/L (15-37); Glomerular Filtration Rate 64 mL/min (>89)
[2018-05-07 16:46] LABS: Total Protein 7.4 g/dL (6.4-8.2)
[2018-05-07 16:47] LABS: Alkaline Phosphatase 97 U/L (45-117)
[2018-05-07] MEDS ORDERED: Morphine Inj 4 MG/ML Vial IV.PUSH PRN (17:37)
[2018-05-07] MEDS ORDERED: Enoxaparin Inj 40 MG/0.4 ML Syringe SQ SCH (18:00)
[2018-05-08 07:46] LABS: Baso % (Auto) 0.4 % (0.0-2.0); Eos # (Auto) 0.3 th/mm3 (0.0-0.4); Eos % (Auto) 4.4 % (0.0-4.0); Hematocrit 35.7 % (35.0-46.0); Hemoglobin 12.4 gm/dL (11.6-15.3); Lymph # (Auto) 1.2 th/mm3 (1.0-4.8); Lymph % (Auto) 19.9 % (9.0-44.0); Mean Corpuscular HGB Conc 34.9 % (32.0-36.0); Mean Corpuscular Hemoglobin 30.1 pg (27.0-34.0); Mean Corpuscular Volume 86.5 fL (80.0-100.0); Mean Platelet Volume 7.6 fL (7.0-11.0); Mono # (Auto) 0.4 th/mm3 (0.0-0.9); Mono % (Auto) 7.4 % (0.0-8.0); Neut # (Auto) 3.9 th/mm3 (1.8-7.7); Neut % (Auto) 67.9 % (16.0-70.0); Platelet Count 334 th/mm3 (150-450); Red Blood Count 4.13 mil/mm3 (4.00-5.30); Red Cell Distribution Width 12.9 % (11.6-17.2); White Blood Count 5.8 th/mm3 (4.0-11.0)
--- NOTE | 2018-05-08 07:48 | P.HP ---
History of Present Illness Primary Care Physician: Addie Alicia MD Chief Complaint: Chest pain History of Present Illness: 82-year-old female with known history of hypertension, hyperlipidemia, coronary artery disease, history of myocardial infarction, hypothyroidism, anxiety who presented to the hospital because of chest discomfort. Patient indicates that approximately 11 AM yesterday morning after she had breakfast from [email or web address] to include a sausage burrito she started developing what she describes an indigestion type discomfort in her epigastric region. She indicated that the discomfort was a 5/10 on a pain scale and did not radiate to her neck, back, shoulder, arm. Patient states that she took 2 times with no relief. Then she took liquid and acid with only minimal relief. Since the pain persisted and she indicates that it was similar to the pain that she had when she had her myocardial infarction she came to emergency department for evaluation. The patient got to the emergency department her pain had resolved. On presentation to emergency department patient did have some accelerated hypertension. Patient had workup done and was unremarkable for any acute coronary event. Is recommended by the ER physician that the patient be observed in the hospital for further evaluation and management. Patient denies any nausea, vomiting, shortness of breath, dyspnea, lightheadedness, dizziness. Patient is followed by Dr. Ahumada on a regular basis and she indicates that her last stress test was approximately 4 years ago. - Diagnosis (1) Chest pain Review of Systems All other systems reviewed negative except as stated in HPI Cardiovascular: Reports chest pain Gastrointestinal: Reports abdominal pain PMFSH - History History Provided By: Patient, Medical Record - Medical History Medical History: Medical History (Last Updated 05/08/18 @ 07:32 by ED Villarreal) Anxiety Coronary artery disease History of myocardial infarction Hyperlipidemia Hypertension Hypothyroidism - Surgical History Surgical History: Surgical History (Last Updated 05/08/18 @ 07:37 by ED Villarreal) History of appendectomy History of cardiac catheterization History of coronary artery stent placement History of tonsillectomy History of vein stripping Status post right knee replacement - Family History Family History: Family History (Last Updated 05/08/18 @ 07:32 by ED Villarreal) Other No pertinent family history - Tobacco History Second Hand Smoke Exposure: No Smoking Status: Never smoker - Alcohol History How Often Do You Have a Drink Containing Alcohol: Never - Substance Use History Substance History: No History of Abuse - Travel History Recent Travel in the [place] Within the Last 8 Weeks: No Recent Travel Out of the Country Within the Last 8 Weeks: No - Immunization History Tetanus Immunization: >5 Years Hx Influenza Vaccine This Season: Yes Medications and Allergies Active Medications: Active Medications Amlodipine Besylate (Norvasc) 5 mg PO DAILY [facility] Aspirin (Ecotrin) 81 mg PO DAILY [facility] Carvedilol (Coreg) 3.125 mg PO BID [facility] Last Admin: 05/07/18 22:25 Dose: 3.125 mg Enoxaparin Sodium (Lovenox Inj) 40 mg SQ Q24H [facility] Last Admin: 05/07/18 17:48 Dose: 40 mg Levothyroxine Sodium (Synthroid) 88 mcg PO DAILY [facility] Lisinopril (Prinivil) 20 mg PO DAILY [facility] Morphine Sulfate (Morphine Inj) 2 mg IV.PUSH Q4H PRN PRN Reason: CHEST PAIN Ondansetron HCl (Zofran Inj) 4 mg IV.PUSH Q6H PRN PRN Reason: NAUSEA OR VOMITING Sodium Chloride (Ns Flush) 2 ml IV.FLUSH UNSCH PRN PRN Reason: FLUSH AFTER USING IV ACCESS Allergies Allergy/AdvReac Type Severity Reaction Status Date / Time amcinonide Allergy Severe UNKNOWN Unverified 09/27/17 09:27 beclomethasone Allergy Severe UNKNOWN Unverified 09/27/17 09:27 betamethasone Allergy Severe UNKNOWN Unverified 09/27/17 09:27 ciprofloxacin Allergy Severe UNKNOWN Unverified 09/27/17 09:27 desoximetasone Allergy Severe UNKNOWN Unverified 09/27/17 09:27 dexamethasone Allergy Severe UNKNOWN Unverified 09/27/17 09:27 diphenhydramine Allergy Severe ANTIHISTAMI Unverified 09/27/17 09:27 JOSE fludrocortisone Allergy Severe UNKNOWN Unverified 09/27/17 09:27 flunisolide Allergy Severe UNKNOWN Unverified 09/27/17 09:27 fluocinolone acetonide Allergy Severe UNKNOWN Unverified 09/27/17 09:27 fluocinonide Allergy Severe UNKNOWN Unverified 09/27/17 09:27 fluorometholone Allergy Severe UNKNOWN Unverified 09/27/17 09:27 flurandrenolide Allergy Severe UNKNOWN Unverified 09/27/17 09:27 fluticasone Allergy Severe UNKNOWN Unverified 09/27/17 09:27 fluticasone furoate Allergy Severe UNKNOWN Unverified 09/27/17 09:27 hydrocortisone Allergy Severe UNKNOWN Unverified 09/27/17 09:27 methylprednisolone Allergy Severe UNKNOWN Unverified 09/27/17 09:27 mometasone furoate Allergy Severe UNKNOWN Unverified 09/27/17 09:27 penicillin G Allergy Severe UNKNOWN Unverified 09/27/17 09:27 prednisolone Allergy Severe UNKNOWN Unverified 09/27/17 09:27 prednisone Allergy Severe UNKNOWN Unverified 09/27/17 09:27 Sulfa (Sulfonamide Allergy Severe UNKNOWN Unverified 09/27/17 09:27 Antibiotics) triamcinolone Allergy Severe UNKNOWN Unverified 09/27/17 09:27 acetaminophen AdvReac Severe VOMITING Unverified 09/27/17 09:27 Home Medications Medication Instructions Recorded Confirmed Type amlodipine 5 mg PO DAILY 05/07/18 05/07/18 History aspirin 81 mg PO DAILY 05/07/18 05/07/18 History carvedilol 3.125 mg PO BID 05/07/18 05/07/18 History levothyroxine 88 mcg PO DAILY 05/07/18 05/07/18 History lisinopril 20 mg PO DAILY 05/07/18 05/07/18 History Exam Vital signs: Vital Signs 05/07/18 15:55 05/07/18 16:12 05/07/18 16:25 Temperature 98.1 F Pulse Rate 71 70 71 Respiratory Rate 18 16 Blood Pressure 196/81 H 167/77 H Pulse Oximetry 98 97 96 05/07/18 20:00 05/08/18 00:00 05/08/18 05:38 Temperature 98.4 F 96.8 F L Pulse Rate 68 68 Respiratory Rate 16 16 Blood Pressure 150/73 H 110/56 L Pulse Oximetry 96 96 96 Intake & Output 05/07/18 05/08/18 05/08/18 18:59 06:59 18:59 Output Total 600 / 600 Balance -600 / -600 Weight 81.5 kg 83 kg Output: Urine 600 / 600 Other: # Voids 2 Narrative: GENERAL: Well-developed, well-nourished, in no acute distress. alert and orientated HEENT: Head is normocephalic without any lesions or masses noted. Facial features are symmetric. Eyes: Pupils equal round reactive to light. Extraocular muscles are intact. Conjunctivae were clear. Oropharyngeal: Pharynx without any erythema edema. Tongue is midline without deviation. Buccal mucosa is moist without any masses or lesions NECK: Supple without any masses. Trachea midline no deviation. No JVD, no bruits are appreciated CARDIAC: Regular rhythm, regular rate. S1/S2 are heard. No murmurs gallops or rubs. LUNGS: Clear to auscultation bilaterally. No wheeze, rhonchi or rales. No use of accessory muscles on inspiration or expiration. ABDOMEN: Soft, nontender. Nondistended. Bowel sounds heard in all 4 quadrants. No organomegaly or masses. Negative rebound, negative guarding EXTREMITIES: No edema, pulses are equal bilaterally. No cyanosis or clubbing NEUROLOGY: Mood and affect appear appropriate. Cranial nerves II through XII grossly intact. Muscle strength 5/5 in upper and lower extremities bilaterally. Deep tendon reflexes are 2+ in upper and lower extremities bilaterally. Results - Labs CBC & Chem 7: 05/08/18 07:20 05/08/18 07:20 Labs: Laboratory Results - last 24 hr 05/07/18 05/07/18 05/07/18 16:20 16:20 16:20 CBC w Diff Auto diff final WBC 7.2 RBC 4.43 Hgb 13.1 Hct 38.0 MCV 85.9 MCH 29.5 MCHC 34.3 RDW 12.9 Plt Count 331 MPV 8.1 Neut % (Auto) 62.3 Lymph % (Auto) 26.5 Branch % (Auto) 6.8 Eos % (Auto) 3.5 Baso % (Auto) 0.9 Neut # (Auto) 4.4 Lymph # (Auto) 1.9 Branch # (Auto) 0.5 Eos # (Auto) 0.3 Baso # (Auto) 0.1 WBC Differential . Differential Comment . Sodium 133 L Potassium 4.2 Chloride 98 Carbon Dioxide 26.3 Anion Gap 9 BUN 13 Creatinine 0.85 Estimated GFR 64 L Random Glucose 93 Calcium 9.1 Total Bilirubin 0.3 AST 15 ALT 18 Alkaline Phosphatase 97 Total Creatine Kinase 32 Troponin I Less than 0.02 L Total Protein 7.4 Albumin 3.7 05/07/18 05/08/18 22:05 03:45 CBC w Diff WBC RBC Hgb Hct MCV MCH MCHC RDW Plt Count MPV Neut % (Auto) Lymph % (Auto) Branch % (Auto) Eos % (Auto) Baso % (Auto) Neut # (Auto) Lymph # (Auto) Branch # (Auto) Eos # (Auto) Baso # (Auto) WBC Differential Differential Comment Sodium Potassium Chloride Carbon Dioxide Anion Gap BUN Creatinine Estimated GFR Random Glucose Calcium Total Bilirubin AST ALT Alkaline Phosphatase Total Creatine Kinase Troponin I Less than 0.02 L Less than 0.02 L Total Protein Albumin - Imaging Impressions Chest X-Ray 05/07/18 16:12 CONCLUSION: Negative examination. Chest X-Ray 05/07/18 16:12 CONCLUSION: Negative examination. Myocardial Perfusion Scan Nuc Med 05/08/18 00:00 CONCLUSION: 1. Negative examination. Caprini VTE Risk Assessment Caprini VTE Risk Assessment: Moderate/High Risk (score >= 2) Caprini Risk Assessment Model: Point Value = 1 Point Value = 2 Point Value = 3 Point Value = 5 Age 41-60 Minor surgery BMI > 25 kg/m2 Swollen legs Varicose veins or History of unexplained or recurrent spontaneous Oral contraceptives or hormone replacement Sepsis (< 1 month) Serious lung disease, including pneumonia (< 1 month) Abnormal pulmonary function Acute myocardial infarction Congestive heart failure (< 1 month) History of inflammatory bowel disease Medical patient at bed rest Age 61-74 Arthroscopic surgery Major open surgery (> 45 min) Laparoscopic surgery (> 45 min) Malignancy Confined to bed (> 72 hours) Immobilizing plaster cast Central venous access Age >= 75 History of VTE Family history of VTE Factor V Leiden Prothrombin [id number] Lupus anticoagulant Anticardiolipin antibodies Elevated serum homocysteine Heparin-induced thrombocytopenia Other congenital or acquired thrombophilia Stroke (< 1 month) Elective arthroplasty Hip, pelvis, or leg fracture Acute spinal cord injury (< 1 month) Prophylaxis Regimen: Total Risk Factor Score Risk Level Prophylaxis Regimen 0-1 Low Early ambulation 2 Moderate Order ONE of the following: *Sequential Compression Device (SCD) *Heparin 5000 units SQ BID 3-4 Higher Order ONE of the following medications: *Heparin 5000 units SQ TID *Enoxaparin/Lovenox 40 mg SQ daily (WT < 150 kg, CrCl > 30 mL/min) *Enoxaparin/Lovenox 30 mg SQ daily (WT < 150 kg, CrCl > 10-29 mL/min) *Enoxaparin/Lovenox 30 mg SQ BID (WT < 150 kg, CrCl > 30 mL/min) AND/OR *Sequential Compression Device (SCD) 5 or more Highest Order ONE of the following medications: *Heparin 5000 units SQ TID (Preferred with Epidurals) *Enoxaparin/Lovenox 40 mg SQ daily (WT < 150 kg, CrCl > 30 mL/min) *Enoxaparin/Lovenox 30 mg SQ daily (WT < 150 kg, CrCl > 10-29 mL/min) *Enoxaparin/Lovenox 30 mg SQ BID (WT < 150 kg, CrCl > 30 mL/min) AND *Sequential Compression Device (SCD) Assessment and Plan - Assessment (1) Chest pain Code(s): R07.9 - Chest pain, unspecified Status: Acute - Plan Chest pain -Patient with significant risk factors include age, hypertension, hyper lipidemia, history of myocardial infarction, coronary artery disease. -Patient has been ruled out for acute coronary event with serial cardiac enzymes that have remained negative -Serial EKGs reviewed by myself which indicated sinus rhythm with possible inferior infarct, no changes -Myocardial perfusion study was performed and indicated normal examination, no signs of ischemia, low risk -Patient continued on aspirin and her home medications to include beta-jovani, DARION inhibitor, calcium channel jovani -Continue monitor telemetry Hypertension, hyper lipidemia, coronary disease, history of myocardial infarction -On presentation patient did have accelerated hypertension -Home medications have been continued DVT prevention -Subcutaneous Lovenox Discharge Planning: Discharge home in stable condition Activity: Ad maren. Diet: Healthy heart diet Medication per medication reconciliation Follow-up with primary medical doctor in 1 week
[2018-05-08 07:50] VITALS: RESP 20; O2SAT 98
[2018-05-08 08:06] LABS: Chloride 99 meq/L (98-107); Potassium 4.1 meq/L (3.5-5.1); Sodium 134 meq/L (136-145)
[2018-05-08 08:09] LABS: Prothrombin Time 10.5 sec (9.8-11.6)
[2018-05-08 08:25] LABS: Alanine Aminotransferase 14 U/L (10-53); Albumin 3.2 g/dL (3.4-5.0); Alkaline Phosphatase 87 U/L (45-117); Anion Gap 8 meq/L (5-15); Aspartate Aminotransferase 13 U/L (15-37); Blood Urea Nitrogen 9 mg/dL (7-18); Calcium 8.2 mg/dL (8.5-10.1); Carbon Dioxide 26.6 meq/L (21.0-32.0); Glomerular Filtration Rate 80 mL/min (>89); Glucose,Random 91 mg/dL (74-106); Total Protein 6.7 g/dL (6.4-8.2)
[2018-05-08] MEDS ORDERED: amLODIPine 5 MG Tablet PO SCH (09:00)
[2018-05-08] MEDS ORDERED: Levothyroxine 88 MCG Tablet PO SCH (09:00)
[2018-05-08] MEDS ORDERED: Lisinopril 20 MG Tablet PO SCH (09:00)
[2018-05-08] MEDS ORDERED: Regadenoson Inj 0.4 MG/5 ML Syringe IV.PUSH ONE (11:03)
--- NOTE | 2018-05-08 11:59 | NM ---
EXAM DATE: 05/08/2018 11:57 AM EDT AGE/SEX: 82 years / Female INDICATIONS:Angina. Myocardial infarction Mid chest pain for one day. CLINICAL DATA: This is the patient's initial encounter. Patient reports that signs and symptoms have been present for 1 day and indicates a pain score of 5/10. MEDICAL/SURGICAL HISTORY: Cardiovascular disease. Hypertension. Appendectomy. Coronary artery stent. Tonsillectomy. COMPARISON: No prior exams available for comparison. No external comparison. DOSE: 8.7 mCi Tc 99m Myoview at rest 26.5 mCi [id number] at stress 0.4 mg Lexiscan STRESS SYMPTOMS: None. EJECTION FRACTION: 70 % TECHNIQUE: The patient underwent pharmacologic stress with infusion of prescribed dose. Continuous ECG tracing was monitored during stress. Gated SPECT imaging was performed after stress and conventi onal SPECT imaging was performed at rest. The examination was performed on a SPECT/CT scanner, both attenuation and non-corrected datasets were reviewed. FINDINGS: Distribution: The maximum perfused segment at stress is in the mid septal wall. Perfusion Study: The pattern of perfusion at stress is within normal limits. Gated Study: There are intact wall motion and wall thickening without hypokinetic or dyskinetic segm ents. The ejection fraction is calculated at 70%. RISK CATEGORY: Low (<1% Annual Motality Rate) CONCLUSION: 1. Negative examination. Electronically signed by: Temo rTevino MD 05/08/2018 11:58 AM EDT
--- NOTE | 2018-05-08 12:25 | ECG ---
Date Performed: 05/08/2018 Time Performed: 03:44:07 PTAGE: 82 years EKG: Sinus rhythm WITH SINUS ARRHYTHMIA NORMAL ECG PREVIOUS TRACING : 05/07/2018 22.02 DOCTOR: Baltazar Sorensen Interpretating Date/Time 05/08/2018 12:24:33
--- NOTE | 2018-05-08 12:29 | ECG ---
Date Performed: 05/07/2018 Time Performed: 22:02:48 PTAGE: 82 years EKG: Sinus rhythm POSSIBLE INFERIOR MYOCARDIAL INFARCTION BORDERLINE ECG No significant change PREVIOUS TRACING : 05/07/2018 15.54 DOCTOR: Baltazar Sorensen Interpretating Date/Time 05/08/2018 12:27:40
--- NOTE | 2018-05-08 12:33 | ECG ---
Date Performed: 05/07/2018 Time Performed: 15:54:12 PTAGE: 82 years EKG: Sinus rhythm MINIMAL ST DEPRESSION BORDERLINE ECG PREVIOUS TRACING : 09/27/2017 10.47 DOCTOR: Baltazar Sorensen Interpretating Date/Time 05/08/2018 12:32:30
[2018-05-08 15:00] VITALS: BP 146/80; PULSE 66; TEMP 97.6
--- NOTE | 2018-05-09 13:32 | TR ---
Date Performed: 05/08/2018 Time Performed: 11:06:04 DOCTOR: Baltazar Sorensen DRUG LIST: CLINICAL HISTORY: CAD REASON FOR TEST: CAD REASON FOR ENDING: OBSERVATION: CONCLUSION: Lexiscan stress test was performed under standard four minute protocol. Radionuclide was injected one minute prior to ending the test. No electrocardiographic abormalities were present to suggest ischemia. Nuclear imaging and interpretation are pending. COMMENTS:
== END 2018-05-08 15:48 | disposition home or self-care (01) ==
LOC: PHED 15:46 → PHEDA 15:46 → PH3 18:56
PROVIDERS: ADMIT Hospitalist; ATTEND Hospitalist